=== PATIENT | female | born 1980 | race Caucasian/White ===

== ENCOUNTER → 2016-07-26 | Outpatient (CLI) | payer BC ==
[~2016-07-26] MED LIST: DICLOFENAC SOD2.5 ML TOP; DOXYCYCLINE HY100 MG PO; EPIDUO 0.1%-2.51 GEL TP; IBU800 M1 PO; METHERGINE0.2 MG/TAB PO; PERCOCET 325 MG1 TA2 PO; PHENTERMINE15 MG PO; SPRINTEC 35 MCG1 TAB PO; THYROLAR PO; TIROSINT50 MC1 PO; [UNRECOGNIZED DRUG - OTHER] PO; [UNRECOGNIZED DRUG - OTHER] TP
== END ==
LOC: ZCOL.LAB 12:31
DX: O26.859 Spotting complicating pregnancy, unspecified trimester (principal)

== ENCOUNTER → 2016-07-28 | Outpatient (CLI) | payer BC | LOC: ZCOL.LAB 11:35 | DX: Z01.89 Encounter for other specified special examinations (principal) ==

== ENCOUNTER 2016-07-30 11:59 | Day surgery (SDC) | payer BC ==
[~2016-07-30] VITALS: Ht 162.6 cm; Wt 89.2 kg
[~2016-07-30 11:59] MED LIST changes: -DOXYCYCLINE HY100 MG PO; -IBU800 M1 PO; -METHERGINE0.2 MG/TAB PO; -PERCOCET 325 MG1 TA2 PO; -PHENTERMINE15 MG PO; -SPRINTEC 35 MCG1 TAB PO; -TIROSINT50 MC1 PO; -[UNRECOGNIZED DRUG - OTHER] PO
[2016-07-30 12:47] VITALS: BP 110/61; PULSE 80; TEMP 98
[2016-07-30] MEDS ORDERED: PERCOCET 325 MG1 TA2 PO (14:47)
[2016-07-30] MEDS ORDERED: IBU800 M1 PO (14:47)
[2016-07-30] MEDS ORDERED: METHERGINE0.2 MG/TAB PO (14:50)
[2016-07-30] MEDS ORDERED: DOXYCYCLINE HY100 MG PO (14:51)
[2016-07-30 15:00] VITALS: BP 98/62; PULSE 85
[2016-07-30 15:01] VITALS: BP 100/56; PULSE 94; TEMP 97.7
[2016-07-30 15:15] VITALS: BP 102/61; PULSE 70
[2016-07-30 15:30] VITALS: BP 101/62; PULSE 67
== END 2016-07-30 16:45 | disposition home or self-care (01) ==
LOC: SDCO 11:59 → OB 14:43 → OR 14:43 → OB 15:35 → OR 15:35
DX: O02.0 Blighted ovum and nonhydatidiform mole (principal); D25.9 Leiomyoma of uterus, unspecified; Z67.91 Unspecified blood type, Rh negative
CPT/HCPCS: J1885; J2210; J2405; J2590; J2704; J2790; J3010; J7120

== ENCOUNTER 2016-08-27 12:18 | Day surgery (SDC) | payer BC ==
[~2016-08-27] VITALS: Ht 162.6 cm; Wt 88.7 kg
[~2016-08-27 12:18] MED LIST changes: +DOXYCYCLINE HY100 MG PO; +IBU800 M1 PO; +METHERGINE0.2 MG/TAB PO; +PERCOCET 325 MG1 TA2 PO
[2016-08-27 13:15] VITALS: BP 109/53; PULSE 67; TEMP 98
[2016-08-27] MEDS ORDERED: TIROSINT50 MC1 PO (13:25)
[2016-08-27] MEDS ORDERED: [UNRECOGNIZED DRUG - OTHER] PO (13:26)
[2016-08-27] MEDS ORDERED: PHENTERMINE15 MG PO (13:27)
[2016-08-27] MEDS ORDERED: SPRINTEC 35 MCG1 TAB PO (13:28)
[2016-08-27 14:55] VITALS: BP 108/67; PULSE 83; TEMP 97.6
[2016-08-27] MEDS ORDERED: DOXYCYCLINE HY100 MG PO (15:06)
[2016-08-27] MEDS ORDERED: METHERGINE0.2 MG/TAB PO (15:07)
[2016-08-27 15:10] VITALS: BP 122/81; PULSE 62
[2016-08-27 15:25] VITALS: BP 115/54; PULSE 54
== END 2016-08-27 16:09 | disposition home or self-care (01) ==
LOC: SDCO 12:18
DX: O72.2 Delayed and secondary postpartum hemorrhage (principal)
CPT/HCPCS: J1885; J2405; J2704; J3010; J7120

== ENCOUNTER → 2016-10-14 | Outpatient (CLI) | payer BC ==
[~2016-10-14] MED LIST changes: +PHENTERMINE15 MG PO; +SPRINTEC 35 MCG1 TAB PO; +TIROSINT50 MC1 PO; +[UNRECOGNIZED DRUG - OTHER] PO
== END ==
LOC: MC.RAD 10:36
DX: Z12.31 Encounter for screening mammogram for malignant neoplasm of breast (principal)

== ENCOUNTER → 2016-10-14 | Outpatient (CLI) | payer BC | LOC: COL.RAD 10-08 08:15 | DX: E04.1 Nontoxic single thyroid nodule (principal) ==